=== PATIENT | female | born 1975 | race Caucasian/White ===

== ENCOUNTER → 2021-01-20 | Outpatient (CLI) | payer BC ==
[2021-01-20 23:07] LABS: ESTRADIOL LEVEL <5.0 pg/mL (.)
[2021-01-21 00:07] LABS: FSH 57.8 mIU/mL (.); LUTEINIZING HORMONE 30.6 mIU/mL (.); PROGESTERONE <0.1 ng/mL (.)
== END ==
LOC: LAB 15:33
PROVIDERS: ATTEND Internal Medicine
DX: N95.1 Menopausal and female climacteric states (principal)
CPT/HCPCS: 36415; 82670; 83001; 83002; 84144

== ENCOUNTER → 2021-02-10 | Outpatient (CLI) | payer BC ==
--- NOTE | 2021-02-10 10:18 | RAD ---
EXAM: Bilateral digital screening mammogram with tomosynthesis. HISTORY: 45-year-old female presents for screening mammography. TECHNIQUE: Full-field digital craniocaudal and mediolateral oblique 2D and 3D tomosynthesis images of both breasts are obtained for evaluation. Computer aided detection was applied. COMPARISON: 02/04/2015 BREAST PARENCHYMAL DENSITY: Level B - Scattered fibroglandular densities. FINDINGS: There is no new suspicious mass, architectural distortion or calcification. There is stable areas of asymmetry and nodularity within both breasts. There are benign calcifications within both b reasts. IMPRESSION: BI-RADS Category 2: Benign finding(s). RECOMMENDATION: Annual mammography is recommended. If your mammogram demonstrates that you have dense breast tissue, which could hide abnormalities, and if you have other risk factors for breast cancer that have been identified, you might benefit from s upplemental screening tests that may be suggested by your ordering physician. Dense breast tissue, i n and of itself, is a relatively common condition. This information is not provided to cause undue c oncern, but rather to raise your awareness and to promote discussion with your physician regarding th e presence of other risk factors, in addition to dense breast tissue. A report of your mammography re sults will be sent to you and your physician. You should contact your physician if you have any ques tions or concerns regarding this report. Mammography is a sensitive method for finding small breast cancers, but it does not detect them all a nd is not a substitute for careful clinical examination. A negative mammogram does not negate a clin ically suspicious finding and should not result in delay in biopsying a clinically suspicious abnorma lity. PQRS compliance statement - Patient information was entered into a reminder system with a target due date for the next mammogram. "Our facility is accredited by the [employer] Mammography [employer]." Electronically signed by: Lotus Buckner MD (02/10/2021 10:16 AM) [id number]
== END ==
LOC: MAMMO 08:23
PROVIDERS: ATTEND Obstetrics & Gynecology
DX: Z12.31 Encounter for screening mammogram for malignant neoplasm of breast (principal)
CPT/HCPCS: 77063; 77067

== ENCOUNTER 2021-05-22 11:14 | Inpatient (IN) | payer BC ==
[~2021-05-22] VITALS: Ht 162.6 cm; Wt 114.1 kg
[2021-05-22] MEDS ORDERED: IOHEXOL 350 MG/ML 100 ML VIAL. IV ONE (13:15)
--- NOTE | 2021-05-22 13:50 | RAD ---
CTA CHEST INDICATION: Hypoxia, shortness of breath Comparison: None. TECHNIQUE: Following the uneventful administration of intravenous contrast, 100 cc Omnipaque 350, axi al CT sections were obtained through the lungs and upper abdomen. Multiplanar reconstructions and MIP images were obtained. PQRS compliance statement: One or more of the following individualized dose reduction techniques were utilized for this examinat ion: 1. Automated exposure control 2. Adjustment of the mA and/or kV according to patient size 3. Use of iterative reconstruction technique FINDINGS: Pulmonary arteries: No evidence of pulmonary thromboembolic disease Lungs and Airways: Patchy bilateral groundglass opacities and consolidations. No abnormality of the c entral airways. Pleura: The pleural spaces are normal. Heart and Mediastinum: The visualized thyroid is normal in size and attenuation. No axillary or supra clavicular lymphadenopathy. No mediastinal, hilar or retrocrural lymphadenopathy. The heart and peric ardium are within normal limits. The great vessels of the thorax are normal. Moderate-sized hiatal he rnia Abdomen: Limited images through the upper abdomen show no abnormality of the visualized organs. Bones and Soft Tissues: The visualized bones and chest wall soft tissues are within normal limits. IMPRESSION: 1. No evidence of pulmonary thrombolic disease. 2. Patchy bilateral groundglass opacities and consolidations Electronically signed by: Jose Rojas MD (05/22/2021 1:48 PM) [facility]
--- NOTE | 2021-05-22 13:54 | EKG ---
[address] [address] Test Date: 2021-05-22 Test Time: 13:17:14 Pat Name: ZACK MIN Department: Room: Gender: F Winder Hand: LYDIA : 1975 Requested By: HUGO CASTRO Order Number: [id number] Reading MD: Hola Abreu MD Measurements Intervals [place] Rate: 85 P: 28 ME: 174 QRS: 20 QRSD: 102 T: 6 QT: 392 QTc: 472 Interpretive Statements SINUS RHYTHM Electronically Signed On 05-24-2021 20:46:13 PRETZEL COOKER by Hola Abreu MD
[2021-05-22 13:56] LABS: BASO % 0 % (0-3); EOS % 0 % (0-3); HEMATOCRIT 32.2 % (36.0-47.0); HEMOGLOBIN 11.1 g/dL (12.0-15.5); LYMPH # 0.5 x10^3/uL (1.0-4.8); LYMPH % 11 % (24-48); MEAN CORPUSCULAR HEMOGLOBIN 29 pg (25-35); MEAN CORPUSCULAR HGB CONC 34 g/dL (31-37); MEAN CORPUSCULAR VOLUME 84 fL (79-100); MONO # 0.1 x10^3/uL (0.0-1.1); MONO % 3 % (0-9); NEUT # 3.6 x10^3uL (1.8-7.7); NEUT % 86 % (31-73); PLATELET COUNT 226 x10^3/uL (140-400); RED BLOOD COUNT 3.83 x10^6/uL (3.50-5.40); RED CELL DISTRIBUTION WIDTH 13.7 % (11.5-14.5); WHITE BLOOD COUNT 4.2 x10^3/uL (4.0-11.0)
[2021-05-22 14:12] LABS: INFLUENZA A PATIENT NEGATIVE (NEGATIVE); INFLUENZA B PATIENT NEGATIVE (NEGATIVE)
[2021-05-22 14:16] LABS: ALBUMIN 2.6 g/dL (3.4-5.0); ALBUMIN/GLOBULIN RATIO 0.8 (1.0-1.7); C REACTIVE PROTEIN 206.6 mg/L (0-3.3); CALCIUM 6.7 mg/dL (8.5-10.1); GFR 59.4; TOTAL BILIRUBIN 0.7 mg/dL (0.2-1.0); TOTAL PROTEIN 5.9 g/dL (6.4-8.2)
[2021-05-22 14:18] LABS: POTASSIUM 2.5 mmol/L (3.5-5.1)
[2021-05-22] MEDS ORDERED: POTASSIUM CHLORIDE 20 MEQ TABLET.ER. PO ONE (14:30)
[2021-05-22] MEDS ORDERED: MAGNESIUM SULFATE 2GM 50 ML IV ONE (16:15)
--- NOTE | 2021-05-22 16:43 | PHYS DOC ---
Past History Past Surgical History: Other Additional Past Surgical Histo: UTERINE ABLATION, LAP BAND (HUGO CASTRO APRN) Alcohol Use: None (HUGO CASTRO APRN) Adult General Chief Complaint Chief Complaint: SHORTNESS OF BREATH HPI HPI Patient is a 45-year-old female who presents to the emergency department complaint of increased shortness of breath for the past week, patient reports 11 days ago she was at a family wedding and exposed to individuals known to have the COVID-19 virus. Patient reports she has not been vaccinated for the COVID- 19 virus or the flu virus this year. Patient denies chest pains, does report loss of taste and loss of smell along with generalized fatigue, denies nausea, vomiting, patient did report a few bouts of diarrhea several days ago however no diarrhea today, or abdominal pains. Denies urinary retention, increased urinary frequency, urinary burning or urinary pressure. Patient denies other physical complaints or physical concerns. Patient reports taking prescriptions of sertraline, lisinopril, omeprazole, chlorthalidone. Reports an allergy to Biaxin. Denies a history of cigarette smoking, alcohol consumption, or illicit drug use. (HUGO CASTRO APRN) Review of Systems Review of Systems 14 body systems of review of systems have been reviewed. See HPI for pertinent positives and negative responses, otherwise all other systems are negative, nonpertinent or noncontributory. Constitutional: Negative except as outlined in HPI above. Skin: Negative except as outlined in HPI above. Eyes: Negative except as outlined in HPI above. HENT: Negative except as outlined in HPI above. Respiratory: Negative except as outlined in HPI above. Cardiovascular: Negative except as outlined in HPI above. GI: Negative except as outlined in HPI above. : Negative except as outlined in HPI above. Musculoskeletal: Negative except as outlined in HPI above. Integument: Negative except as outlined in HPI above. Neurologic: Negative except as outlined in HPI above. Endocrine: Negative except as outlined in HPI above. Lymphatic: Negative except as outlined in HPI above. Psychiatric: Negative except as outlined in HPI above. (HUGO CASTRO APRN) Current Medications Current Medications Current Medications Medications (Trade) Dose Ordered Sig/Jorge Start Time Stop Time Status Last Admin Dose Admin Iohexol (Omnipaque 350 Mg/ml) 100 ml 1X ONCE 05/22/21 13:15 05/22/21 13:16 DC 05/22/21 13:29 100 ML Magnesium Sulfate 50 ml @ 25 mls/hr 1X ONCE 05/22/21 16:15 05/22/21 18:14 Potassium Chloride (Klor-Con) 40 meq 1X ONCE 05/22/21 14:30 05/22/21 14:34 DC 05/22/21 15:22 40 MEQ (HUGO CASTRO APRN) Allergies Allergies Allergies Coded Allergies Type Severity Reaction Last Updated Verified No Known Drug Allergies 05/22/21 No (HUGO CASTRO APRN) Physical Exam Physical Exam Constitutional: Well developed, well nourished, no acute distress, non-toxic appearance. 45-year-old female in no apparent distress. HENT: Normocephalic, atraumatic. Oropharynx moist, pink, no deep tissue infectious process appreciated, bilateral TMs within normal limits. No lymphadenopathy of the head or neck appreciated. Eyes: Conjunctiva normal, no discharge. Neck: Normal range of motion, no stridor. No nuchal rigidity, no meningismus signs. Cardiovascular: No cyanosis appreciated, distal cap refill less than 2 seconds. Regular rate and rhythm. Lungs & Thorax: Patient is in no respiratory distress, no audible adventitious lung sounds appreciated. Room air oxygen saturation 88%, patient placed on 2 L per nasal cannula. No adventitious lung sounds appreciated. Abdomen: Nontender, no abnormalities noted. Skin: Warm, dry, no erythema, no rash. Back: No tenderness, no deformities. Extremities: No tenderness, no cyanosis, no clubbing, ROM intact, no edema. Neurologic: Alert and oriented X 3, normal motor function, normal sensory function, no focal deficits noted. Psychologic: Affect normal, judgement normal, mood normal. (HUGO CASTRO APRN) Current Patient Data Vital Signs Vital Signs Date Time Temp Pulse Resp B/P (MAP) Pulse Ox O2 Delivery O2 Flow Rate FiO2 05/22/21 15:38 96 Nasal Cannula 1.0 05/22/21 15:00 76 115/67 (83) 05/22/21 14:30 20 05/22/21 13:10 98.2 Lab Results Laboratory Tests Test 05/22/21 13:38 05/22/21 13:40 05/22/21 14:38 White Blood Count 4.2 x10^3/uL (4.0-11.0) Red Blood Count 3.83 x10^6/uL (3.50-5.40) Hemoglobin 11.1 g/dL (12.0-15.5) L Hematocrit 32.2 % (36.0-47.0) L Mean Corpuscular Volume 84 fL (79-100) Mean Corpuscular Hemoglobin 29 pg (25-35) Mean Corpuscular Hemoglobin Concent 34 g/dL (31-37) Red Cell Distribution Width 13.7 % (11.5-14.5) Platelet Count 226 x10^3/uL (140-400) Neutrophils (%) (Auto) 86 % (31-73) H Lymphocytes (%) (Auto) 11 % (24-48) L Monocytes (%) (Auto) 3 % (0-9) Eosinophils (%) (Auto) 0 % (0-3) Basophils (%) (Auto) 0 % (0-3) Neutrophils # (Auto) 3.6 x10^3uL (1.8-7.7) Lymphocytes # (Auto) 0.5 x10^3/uL (1.0-4.8) L Monocytes # (Auto) 0.1 x10^3/uL (0.0-1.1) Eosinophils # (Auto) 0.0 x10^3/uL (0.0-0.7) Basophils # (Auto) 0.0 x10^3/uL (0.0-0.2) Sodium Level 131 mmol/L (136-145) L Potassium Level 2.5 mmol/L (3.5-5.1) *L Chloride Level 89 mmol/L (98-107) L Carbon Dioxide Level 28 mmol/L (21-32) Anion Gap 14 (6-14) Blood Urea Nitrogen 18 mg/dL (7-20) Creatinine 1.0 mg/dL (0.6-1.0) Estimated GFR (Cockcroft-Gault) 59.4 BUN/Creatinine Ratio 18 (6-20) Glucose Level 101 mg/dL (70-99) H Calcium Level 6.7 mg/dL (8.5-10.1) L Total Bilirubin 0.7 mg/dL (0.2-1.0) Aspartate Amino Transferase (AST) 38 U/L (15-37) H Alanine Aminotransferase (ALT) 26 U/L (14-59) Alkaline Phosphatase 91 U/L (46-116) C-Reactive Protein 206.6 mg/L (0-3.3) H Total Protein 5.9 g/dL (6.4-8.2) L Albumin 2.6 g/dL (3.4-5.0) L Albumin/Globulin Ratio 0.8 (1.0-1.7) L Influenza Type A (Rapid) Negative (NEGATIVE) Influenza Type B (Rapid) Negative (NEGATIVE) SARS-CoV-2 Antigen (Rapid) Negative (NEGATIVE) Magnesium Level 1.3 mg/dL (1.8-2.4) L Creatine Kinase 199 U/L (26-192) H (HUGO CASTRO APRN) EKG EKG EKG performed at 1317 by ED nursing staff shows a normal sinus rhythm, 85 bpm, no other ectopy appreciated, LA interval 0.174, QTc interval 0.472, no acute STEMI, no ACS, no acute ischemia appreciated, EKG interpreted by ED attending physician Dr. Sinclair. (HUGO CASTRO APRN) Radiology/Procedures Radiology/Procedures REASON: Hypoxia, shortness of breath PROCEDURE: CT ANGIOGRAPHY CHEST CTA CHEST INDICATION: Hypoxia, shortness of breath Comparison: None. TECHNIQUE: Following the uneventful administration of intravenous contrast, 100 cc Omnipaque 350, axial CT sections were obtained through the lungs and upper ab domen. Multiplanar reconstructions and MIP images were obtained. PQRS compliance statement: One or more of the following individualized dose reduction techniques were utilized for this examination: 1. Automated exposure control 2. Adjustment of the mA and/or kV according to patient size 3. Use of iterative reconstruction technique FINDINGS: Pulmonary arteries: No evidence of pulmonary thromboembolic disease Lungs and Airways: Patchy bilateral groundglass opacities and consolidations. No abnormality of the central airways. Pleura: The pleural spaces are normal. Heart and Mediastinum: The visualized thyroid is normal in size and attenuation. No axillary or supraclavicular lymphadenopathy. No mediastinal, hilar or retrocrural lymphadenopathy. The heart and pericardium are within normal limits. The great vessels of the thorax are normal. Moderate-sized hiatal hernia Abdomen: Limited images through the upper abdomen show no abnormality of the visualized organs. Bones and Soft Tissues: The visualized bones and chest wall soft tissues are within normal limits. IMPRESSION: 1. No evidence of pulmonary thrombolic disease. 2. Patchy bilateral groundglass opacities and consolidations Electronically signed by: Jose Rojas MD (05/22/2021 1:48 PM) [facility] (HUGO CASTRO APRN) Heart Score C/O Chest Pain: No Risk Factors: Risk Factors: DM, Current or recent (<one month) smoker, HTN, HLP, family history of CAD, obesity. Risk Scores: Risk Factors: DM, Current or recent (<one month) smoker, HTN, HLP, family history of CAD, obesity. (HUGO CASTRO APRN) Course & Med Decision Making Course & Med Decision Making Pertinent Labs and Imaging studies reviewed. (See chart for details) 45-year-old female, vital signs reviewed, presents emergency department concerning COVID-19 virus signs and symptoms. Physical examination concerning for COVID-19 virus infection versus atypical pneumonia. Will order CBC, CMP, EKG, CT angio chest, oxygen to keep saturation above 93%, CT angio chest negative for pulmonary embolus, concerning for groundglass opacities consistent with COVID-19 virus infection, EKG is unremarkable, WBC unremarkable, chemistries concerning for hypokalemia 2.5, will give 40 mEq potassium x2, order magnesium level. Discussed concerns with patient, recommended admission to hospital for ongoing treatment of electrolyte disturbances and suspected COVID-19 virus and infection, patient is amenable to admission to [facility]. Mag level 1.3, will give 2 g of mag IV, called and discussed patient case and emergency department work-up with inpatient management physician Dr. Reynoso who agrees patient presentation warrants admission to the hospital. Dr. Reynoso requested starting patient on remdesivir, Decadron, Lovenox, Levaquin. Discussed remdesivir with pharmacy, pharmacist reports they cannot release medication unless patient is COVID-19 positive, the rapid test is negative, pending PCR result. (HUGO CASTRO APRN) Course & Med Decision Making I was the Attending physician on the above date of service of this patient. This patient was evaluated, examined, treated, and dispositioned from the emergency department by the mid-level practitioner. I reviewed care of the patient while in ER setting. I recommended provided interventions and need for hospitalization Electronically signed, Jerry Sinclair DO (JERRY SINCLAIR DO) George Disclaimer George Disclaimer This electronic medical record was generated, in whole or in part, using a voice recognition dictation system. (HUGO CASTRO APRN) Departure Departure: Impression: Primary Impression: Hypoxia Additional Impressions: Person under investigation for COVID-19 Hypokalemia Hypomagnesemia Community acquired pneumonia Atypical pneumonia Disposition: ADMITTED INPATIENT Admitting Physician: Monster Reynoso (Admit to telemetry unit) (HUGO CASTRO APRN) Condition: GUARDED Referrals: KAMILLA ROPER MD (PCP) Problem Qualifiers Additional Impressions: Community acquired pneumonia Laterality: unspecified laterality Qualified Codes: J18.9 - Pneumonia, unspecified organism HUGO CASTRO APRN May 22, 2021 16:42 JERRY SINCLAIR DO May 23, 2021 06:41
[2021-05-22] MEDS ORDERED: ENOXAPARIN ** NOTE DOSE ** SYRINGE SQ ONE (17:00)
[2021-05-22] MEDS ORDERED: DEXAMETHASONE SOD PHOS 10 MG/ML VIAL. IV ONE (17:00)
[2021-05-22 18:16] VITALS: BP 142/81
[2021-05-22] MEDS ORDERED: LISI20TA18 PO (19:29)
[2021-05-22] MEDS ORDERED: MULT-114 PO (19:29)
[2021-05-22] MEDS ORDERED: CHLO25TA9 PO (19:29)
[2021-05-22] MEDS ORDERED: SERT100T PO (19:29)
[2021-05-22] MEDS ORDERED: OMEP20TA8 PO (19:29)
--- NOTE | 2021-05-22 20:12 | NUR ---
Admission note : pt admitted to room 103 at 1700 via EMS from ed
[2021-05-22] MEDS: ACETAMINOPHEN 325 MG TABLET PO PRN (23:51)
[2021-05-23 00:29] VITALS: BP 123/80
[2021-05-23 06:07] VITALS: BP 140/94
[2021-05-23] MEDS ORDERED: CHLORTHALIDONE 25 MG TABLET PO SCH (09:00)
[2021-05-23] MEDS: PANTOPRAZOLE 40 MG TABLET. PO SCH (09:51)
[2021-05-23] MEDS: LISINOPRIL 20 MG TABLET PO SCH (09:52)
[2021-05-23] MEDS: MULTIVITAMIN with MINERAL TABLET. PO SCH (09:52)
[2021-05-23] MEDS: SERTRALINE 100 MG TABLET. PO SCH (09:52)
[2021-05-23] MEDS: ENOXAPARIN 40 MG/0.4 ML SYRINGE. SQ SCH ×2 (09:53→20:10)
[2021-05-23] MEDS: DEXAMETHASONE SOD PHOS 4 MG/ML VIAL. IVP SCH (09:54)
[2021-05-23 10:15] LABS: BASO % 0 % (0-3); EOS % 0 % (0-3); HEMATOCRIT 33.5 % (36.0-47.0); HEMOGLOBIN 11.8 g/dL (12.0-15.5); LYMPH # 0.3 x10^3/uL (1.0-4.8); LYMPH % 12 % (24-48); MEAN CORPUSCULAR HEMOGLOBIN 30 pg (25-35); MEAN CORPUSCULAR HGB CONC 35 g/dL (31-37); MEAN CORPUSCULAR VOLUME 84 fL (79-100); MONO # 0.1 x10^3/uL (0.0-1.1); MONO % 4 % (0-9); NEUT # 2.2 x10^3uL (1.8-7.7); NEUT % 84 % (31-73); PLATELET COUNT 280 x10^3/uL (140-400); RED BLOOD COUNT 4.01 x10^6/uL (3.50-5.40); RED CELL DISTRIBUTION WIDTH 13.8 % (11.5-14.5); WHITE BLOOD COUNT 2.6 x10^3/uL (4.0-11.0)
[2021-05-23 10:17] VITALS: BP 133/88
[2021-05-23 10:22] LABS: ALBUMIN 2.7 g/dL (3.4-5.0); ALBUMIN/GLOBULIN RATIO 0.6 (1.0-1.7); CALCIUM 8.1 mg/dL (8.5-10.1); CREATININE 1.1 mg/dL (0.6-1.0); GFR 53.2; TOTAL BILIRUBIN 0.7 mg/dL (0.2-1.0); TOTAL PROTEIN 7.1 g/dL (6.4-8.2)
[2021-05-23 10:30] LABS: POTASSIUM 2.7 mmol/L (3.5-5.1)
[2021-05-23] MEDS ORDERED: POTASSIUM CHLORIDE 20 MEQ TABLET.ER. PO ONE ×3 (10:45→12:45)
[2021-05-23] MEDS: POTASSIUM CHLORIDE 20 MEQ TABLET.ER. PO SCH ×3 (11:13→13:20)
--- NOTE | 2021-05-23 15:12 | HP ---
DATE OF SERVICE: 05/23/2021 ADMIT DATE: 05/22/2021 HISTORY OF PRESENT ILLNESS: The patient is a 45-year-old female patient who presented to the Emergency Room with a complaint of shortness of breath that has been going on for almost a week. The patient reports 11 days ago, she was at a family wedding and exposed to individuals known to have COVID-19 virus. She reports that she has not been vaccinated for COVID-19 virus or the flu virus this year. She denied any chest pain. Does report loss of taste and loss of smell along with generalized fatigue. Denied any nausea or vomiting, but had multiple episodes of diarrhea that has continued for several days. Denied any abdominal pain. She denied any frequency or dysuria. She was taking her medications as prescribed. She was extensively investigated in the Emergency Room and has had lab work and imaging studies. Her lab work showed that her white cell count was normal. She has normochromic normocytic anemia. Her chemistry showed that she has hyponatremia and hypokalemia as well as hypomagnesemia. Her C-reactive protein was ____. CT angio of the chest showed the patient has no evidence of pulmonary thromboembolic disease. She has patchy bilateral ground glass opacities and consolidation. She tested positive for coronavirus, although her influenza A and B were negative. She was admitted with COVID-19 pneumonia, acute hypoxic respiratory failure, was started on IV antibiotic in the form of Levaquin, dexamethasone and Lovenox together with her other home medication. PAST MEDICAL HISTORY: Significant for hypertension, morbid obesity and obstructive sleep apnea. PAST SURGICAL HISTORY: Significant for lap band in 2010 that was taken out in 2014. She had D and C as well as endometrial ablation. ALLERGIES: SHE IS ALLERGIC TO BIAXIN. MEDICATIONS: She is currently on the following medications: She is on lisinopril 20 mg once a day, sertraline 100 mg once a day, chlorthalidone 25 mg once a day, omeprazole 20 mg once a day, multivitamin with mineral 1 tablet once a day. FAMILY HISTORY: She has 1 older brother, who is healthy. Both parents are alive and healthy. SOCIAL HISTORY: She is , has 2 sons. She does not smoke, drink alcohol or recreational drugs. She works as a part-time real estate rep. REVIEW OF SYSTEMS: As per history of present illness. PHYSICAL EXAMINATION: GENERAL: On arrival to the Emergency Room, she looked well and was clearly in no apparent respiratory distress. No pallor, jaundice, cyanosis or thyromegaly. No jugular venous distention. No lower limb edema. VITAL SIGNS: His heart rate was 96, blood pressure is 124/82, temperature was 98.2, respiratory rate 20, and oxygen saturation was 90% on room air, increased to 98% on 2 liters of oxygen. HEAD, EYES, EARS, NOSE, AND THROAT: Normocephalic, atraumatic. NECK: Supple. HEART: Showed normal first and second heart sounds. No gallop, rub or murmur. CHEST: Showed central trachea, equal bilateral chest expansion, air entry, vesicular breath sounds. The patient has a few bilateral basal crepitations. I could not appreciate any rhonchi. ABDOMEN: Distended, soft, nontender. NEUROLOGIC: She was grossly intact. LABORATORY DATA: Her lab work on admission showed a white cell count 4200, hemoglobin 11, hematocrit 32, MCV 84, platelet count 226,000. Her chemistry showed a serum sodium 131, potassium 2.5, chloride 89, bicarbonate 28, anion gap of 14, BUN 18, creatinine 1, estimated GFR was 59 mL per minute. Her glucose was 101, calcium was 6.7, magnesium was 1.3. Total bilirubin, AST, ALT, alkaline phosphatase were normal. Her CK was 199. C-reactive protein was ____. Total protein 5.9, albumin was 2.6. Her coronavirus by PCR was positive; however, influenza A and B were negative. ASSESSMENT: The patient was admitted with: 1. Coronavirus pneumonia. 2. Acute hypoxic respiratory failure. 3. Hypertension. 4. Gastroesophageal reflux disease. 5. Morbid obesity. 6. Obstructive sleep apnea. PLAN: Is to continue with IV Levaquin, IV dexamethasone, Lovenox 40 mg subcutaneously q. 12 hourly, Protonix, sertraline, and lisinopril. We held her hydrochlorothiazide given that she has severe hyponatremia, hypokalemia and hypomagnesemia. We will replenish her potassium and magnesium and follow her closely on a daily basis. JULIANNA/DYLAN/CHRISTINA DR: Rosie TID: [id number]
[2021-05-23] MEDS: MAGNESIUM OXIDE 400 MG TABLET PO SCH ×2 (15:24→20:10)
[2021-05-23] MEDS: POTASSIUM CL 40MEQ D5-0.45NACL 1,000 ML IV SCH (15:24)
[2021-05-23 15:58] LABS: CALCIUM 8.3 mg/dL (8.5-10.1); GFR 59.4; POTASSIUM 3.4 mmol/L (3.5-5.1)
[2021-05-23] MEDS: CALCIUM CARBONATE 500 MG TAB.CHEW PO PRN (17:18)
[2021-05-23 18:07] VITALS: BP 114/67
[2021-05-23] MEDS: ACETAMINOPHEN 325 MG TABLET PO PRN (18:33)
[2021-05-23] MEDS ORDERED: MELATONIN 3 MG TABLET PO PRN (19:30)
[2021-05-23 20:02] VITALS: BP 131/95
--- NOTE | 2021-05-23 20:17 | PN ---
DATE: 05/23/2021 SUBJECTIVE: The patient is resting, slightly propped up in bed, in no apparent respiratory distress. She is awake, alert. On questioning her, she is feeling that her appetite is improving. She has also regained her taste and smell. Continued to have shortness of breath, continued to have also loose bowel movement. PHYSICAL EXAMINATION: GENERAL: When I examined her, she looked well and was clearly in no apparent respiratory distress. No pallor, jaundice, cyanosis or thyromegaly. No jugular venous distention. No limb edema. VITAL SIGNS: Her heart rate was 69, blood pressure was 133/88, temperature was 97.9, respiratory rate was 18 and oxygen saturation was 97% on 2 liters of oxygen. HEAD, EYES, EARS, NOSE, AND THROAT: Normocephalic, atraumatic. NECK: Supple. HEART: Normal first and second heart sounds. No gallop, rub or murmur. CHEST: Clear to auscultation. No crepitation or rhonchi. ABDOMEN: Distended, soft, nontender. NEUROLOGIC: She was grossly intact. LABORATORY DATA: This morning showed white cell count down to 2600, hemoglobin 11.8, hematocrit 33.5, MCV 84 and platelet count 280,000. Chemistry showed a serum sodium of 135, potassium 3.7, chloride 93, bicarbonate 31, anion gap of 11, BUN 20, creatinine was 1.1. Estimated GFR was 53 mL per minute. Her glucose 163, calcium was 8.1. Total bilirubin, AST, ALT, alkaline phosphatase were normal. Total protein 7.1, albumin was 2.7. ASSESSMENT: 1. Coronavirus pneumonia. 2. Possible superimposed community-acquired pneumonia. 3. Acute hypoxic respiratory failure. 4. Hypertension. 5. Morbid obesity and obstructive sleep apnea. 6. Gastroesophageal reflux disease. PLAN: To continue with all her current medications. I will repeat her lab work again this afternoon and if need be I did start her on IV fluid in the form of D5 half normal with 40 mEq of potassium chloride and if her magnesium is low, we will start her on oral IV magnesium. BEN DR: Rosie TID: [id number]
[2021-05-24 00:40] VITALS: BP 126/84
[2021-05-24 05:00] VITALS: BP 147/87
--- NOTE | 2021-05-24 05:46 | NUR ---
Pt is pleasant and interactive. She is eager to learn how to take care of herself to get and stay well. Breathing and exercise discussed. Pt expresses she slept off and on through the night and has a headache. She also was up urinating multiple times. Will continue to monitor.
[2021-05-24] MEDS: POTASSIUM CL 40MEQ D5-0.45NACL 1,000 ML IV SCH (07:28)
[2021-05-24 08:04] LABS: BASO % 0 % (0-3); EOS % 0 % (0-3); HEMATOCRIT 32.2 % (36.0-47.0); HEMOGLOBIN 11.4 g/dL (12.0-15.5); LYMPH # 0.8 x10^3/uL (1.0-4.8); LYMPH % 16 % (24-48); MEAN CORPUSCULAR HEMOGLOBIN 30 pg (25-35); MEAN CORPUSCULAR HGB CONC 35 g/dL (31-37); MEAN CORPUSCULAR VOLUME 84 fL (79-100); MONO # 0.2 x10^3/uL (0.0-1.1); MONO % 5 % (0-9); NEUT # 3.8 x10^3uL (1.8-7.7); NEUT % 78 % (31-73); PLATELET COUNT 332 x10^3/uL (140-400); RED BLOOD COUNT 3.83 x10^6/uL (3.50-5.40); RED CELL DISTRIBUTION WIDTH 13.9 % (11.5-14.5); WHITE BLOOD COUNT 4.8 x10^3/uL (4.0-11.0)
[2021-05-24] MEDS: ENOXAPARIN 40 MG/0.4 ML SYRINGE. SQ SCH (08:24)
[2021-05-24] MEDS: CALCIUM CARBONATE 500 MG TAB.CHEW PO PRN (08:25)
[2021-05-24] MEDS: SERTRALINE 100 MG TABLET. PO SCH (08:25)
[2021-05-24] MEDS: PANTOPRAZOLE 40 MG TABLET. PO SCH (08:25)
[2021-05-24] MEDS: MAGNESIUM OXIDE 400 MG TABLET PO SCH ×2 (08:25→14:14)
[2021-05-24] MEDS: MULTIVITAMIN with MINERAL TABLET. PO SCH (08:25)
[2021-05-24 08:26] VITALS: BP 147/87
[2021-05-24] MEDS: LISINOPRIL 20 MG TABLET PO SCH (08:26)
[2021-05-24] MEDS: DEXAMETHASONE SOD PHOS 4 MG/ML VIAL. IVP SCH (08:27)
[2021-05-24 08:37] LABS: ALBUMIN 2.6 g/dL (3.4-5.0); ALBUMIN/GLOBULIN RATIO 0.6 (1.0-1.7); CALCIUM 8.3 mg/dL (8.5-10.1); GFR 59.4; POTASSIUM 3.7 mmol/L (3.5-5.1); TOTAL BILIRUBIN 0.5 mg/dL (0.2-1.0); TOTAL PROTEIN 6.7 g/dL (6.4-8.2)
[2021-05-24] MEDS ORDERED: LACTOBACILLUS RHAMNOSUS GG 1 CAPSULE. PO SCH (09:00)
[2021-05-24] MEDS ORDERED: LEVO750T5 PO (09:57)
[2021-05-24] MEDS ORDERED: DEXA6TAB PO (09:57)
--- NOTE | 2021-05-24 10:42 | NUR ---
Pt was 93% on room air at rest and dropped to 87 when ambulating. pt oxygen came back up to 92 on 3L while ambulating .
--- NOTE | 2021-05-24 11:44 | DS ---
DATE OF DISCHARGE: 05/24/2021 HOSPITAL COURSE: The patient is sitting at the edge of the bed comfortably, in no apparent respiratory distress. On questioning her, she continued to have some cough which is dry, continued to complain of shortness of breath on exertion but feels generally much improved. Her appetite has improved and her taste and smell has resolved. She is maintaining her oxygen saturation at 98% on 2 liters of oxygen. However, she continued to desaturate on exertion, so we will do a 6-minute walk and she will be discharged on oxygen if needed. PHYSICAL EXAMINATION: GENERAL: On examining her, she looked well and was clearly in no apparent respiratory distress. No pallor, jaundice, cyanosis or thyromegaly. No jugular venous distention. No limb edema. VITAL SIGNS: Her heart rate was 74, blood pressure was 147/87, temperature 97.7, respiratory rate was 18 and oxygen saturation was 98% on 2 liters of oxygen. HEAD, EYES, EARS, NOSE, AND THROAT: Normocephalic, atraumatic. NECK: Supple. HEART: Showed normal first and second heart sounds. No gallop, rub or murmur. CHEST: Clear to auscultation. No crepitation or rhonchi. ABDOMEN: Distended, soft, nontender. NEUROLOGIC: She was grossly intact. Her intake and output are incompletely recorded. LABORATORY DATA: This morning showed a white cell count 4800, hemoglobin 11, hematocrit 32, MCV 84, platelet count 332,000. Her chemistry showed a serum sodium of 136, potassium 3.7, chloride 100, bicarbonate 27, anion gap of 9, BUN 21, creatinine 1, estimated GFR was 59 mL per minute. Her glucose 106, calcium was 8.3, magnesium was 2.3. Total bilirubin, AST, ALT, alkaline phosphatase were normal. Total protein 6.7, albumin was 2.6. DISCHARGE MEDICATIONS: The patient will be discharged home to continue on dexamethasone 6 mg daily for 7 days, levofloxacin 750 mg daily for 7 days. Should continue with lisinopril 20 mg once a day, multivitamin with mineral one tablet once a day, omeprazole 20 mg once a day, sertraline, Zoloft 100 mg once a day. I discontinued her chlorthalidone. FINAL DISCHARGE DIAGNOSES: 1. COVID-19 pneumonia. 2. Acute hypoxic respiratory failure. 3. Hypertension. 4. Morbid obesity. 5. Hypokalemia, resolved. 6. Hyponatremia. 7. Hypomagnesemia, resolved. JULIANNA DR: Rosie TID: [id number]
--- NOTE | 2021-05-24 15:57 | NUR ---
discharge note Pt discharged at 1500 via wheel chair accompanied by family member. pt given written and verbal instructions with verbal statement of understanding received.
--- NOTE | 2021-05-25 09:53 | DS ---
DATE OF DISCHARGE: 05/24/2021 HOSPITAL COURSE: The patient is sitting at the edge of the bed comfortably, in no apparent respiratory distress. On questioning her, she continued to have some cough which is dry, continued to complain of shortness of breath on exertion but feels generally much improved. Her appetite has improved and her taste and smell has resolved. She is maintaining her oxygen saturation at 98% on 2 liters of oxygen. However, she continued to desaturate on exertion, so we will do a 6-minute walk and she will be discharged on oxygen if needed. PHYSICAL EXAMINATION: GENERAL: On examining her, she looked well and was clearly in no apparent respiratory distress. No pallor, jaundice, cyanosis or thyromegaly. No jugular venous distention. No limb edema. VITAL SIGNS: Her heart rate was 74, blood pressure was 147/87, temperature 97.7, respiratory rate was 18 and oxygen saturation was 98% on 2 liters of oxygen. HEAD, EYES, EARS, NOSE, AND THROAT: Normocephalic, atraumatic. NECK: Supple. HEART: Showed normal first and second heart sounds. No gallop, rub or murmur. CHEST: Clear to auscultation. No crepitation or rhonchi. ABDOMEN: Distended, soft, nontender. NEUROLOGIC: She was grossly intact. Her intake and output are incompletely recorded. LABORATORY DATA: This morning showed a white cell count 4800, hemoglobin 11, hematocrit 32, MCV 84, platelet count 332,000. Her chemistry showed a serum sodium of 136, potassium 3.7, chloride 100, bicarbonate 27, anion gap of 9, BUN 21, creatinine 1, estimated GFR was 59 mL per minute. Her glucose 106, calcium was 8.3, magnesium was 2.3. Total bilirubin, AST, ALT, alkaline phosphatase were normal. Total protein 6.7, albumin was 2.6. DISCHARGE MEDICATIONS: The patient will be discharged home to continue on dexamethasone 6 mg daily for 7 days, levofloxacin 750 mg daily for 7 days. Should continue with lisinopril 20 mg once a day, multivitamin with mineral one tablet once a day, omeprazole 20 mg once a day, sertraline, Zoloft 100 mg once a day. I discontinued her chlorthalidone. FINAL DISCHARGE DIAGNOSES: 1. COVID-19 pneumonia. 2. Acute hypoxic respiratory failure. 3. Hypertension. 4. Morbid obesity. 5. Hypokalemia, resolved. 6. Hyponatremia. 7. Hypomagnesemia, resolved. ADDENDUM The patient was instructed that if her symptoms have worsened or become more short of breath or hypoxic despite oxygen, she should come to the Emergency Room [facility]. JULIANNA DR: Rosie TID: [id number]
== END 2021-05-24 15:59 | disposition home or self-care (01) | DRG 177 ==
LOC: ER 11:14 → 1 SOUTH 16:54
PROVIDERS: ADMIT Internal Medicine; ATTEND Internal Medicine
DX: U07.1 COVID-19 (principal); J96.01 Acute respiratory failure with hypoxia; J12.82 Pneumonia due to coronavirus disease 2019; E87.1 Hypo-osmolality and hyponatremia; Z68.41 Body mass index [BMI] 40.0-44.9, adult; E66.01 Morbid (severe) obesity due to excess calories; D64.9 Anemia, unspecified; E83.42 Hypomagnesemia; E87.6 Hypokalemia; G47.33 Obstructive sleep apnea (adult) (pediatric); I10 Essential (primary) hypertension; K21.9 Gastro-esophageal reflux disease without esophagitis; Z98.84 Bariatric surgery status; Z88.1 Allergy status to other antibiotic agents
CPT/HCPCS: 36415; 71275; 80048; 80053; 82550; 83735; 85025; 86140; 87040; 87426; 87804; 93005; 94618; 96365; 96368; 96372; 96375; J1100; J1650; J1956; J3475; J7042; Q9967; U0003; 99285-25